=== PATIENT | male | born 1930 | race Caucasian/White ===

== ENCOUNTER 2017-01-12 06:38 | Emergency (ER) | payer OTHER, MEDICARE ==
[~2017-01-12 06:38] MED LIST: ARICEPT5 PO; ASAB PO; ASAEC PO; ATV1 PO; AUG875 PO; COMBIGAN0.2 MG/0.5 OPH; CYANO1000T PO; EXELON4.6T TOP; FLOMAX4 PO; JALYN 0.5-0.41 EACH PO; KCL20UDL PO; LEVOTHYROXIN125 MCG PO; LOVENOX40 SC; MELA3 PO; NORV25 PO; NYS500UDL PO; SEROQUEL25 PO; STERAPRED DS10 MG; SYN125 PO; ZOL100 PO; ZOLOFT25 MG PO
== END 2017-01-12 07:09 | disposition expired ==
LOC: ER 06:38
DX: I46.9 Cardiac arrest, cause unspecified (principal); F03.90 Unspecified dementia, unspecified severity, without behavioral disturbance, psychotic disturbance, mood disturbance, and anxiety; Z88.5 Allergy status to narcotic agent; Z79.82 Long term (current) use of aspirin; Z79.52 Long term (current) use of systemic steroids
CPT/HCPCS: 99285